=== PATIENT | female | born 1950 | race Caucasian/White ===

== ENCOUNTER 2022-10-09 15:32 | Emergency (ER) | payer MEDICARE, BC ==
[2022-10-09] MEDS ORDERED: Sodium Chloride 0.9% 10 ML Syringe FLUSH PRN (15:37)
[2022-10-09] MEDS ORDERED: Nitroglycerin 0.4 MG Tab.SL SL PRN (15:39)
[2022-10-09 16:24] LABS: ANION GAP 12.1 meq/L (7-15); CHLORIDE,CL 107 mmol/L (98-107); SODIUM,NA 143 mmol/L (136-145)
[2022-10-09 16:25] LABS: ESTIMATED GFR 85 mL/min (>=60)
[2022-10-09] MEDS: Aspirin 81 MG Tab.Chew PO ONE (16:30)
[2022-10-09 17:23] LABS: CORONAVIRUS COVID-19 NAA NEGATIVE (NEGATIVE); RESPIRATORY SYNCYTIAL VIR NAA NEGATIVE (NEGATIVE)
== END 2022-10-09 17:20 | disposition home or self-care (01) ==
LOC: LL.ED 15:32
DX: R07.89 Other chest pain (principal); E78.00 Pure hypercholesterolemia, unspecified; I10 Essential (primary) hypertension; Z86.16 Personal history of COVID-19; Z88.2 Allergy status to sulfonamides; Z88.8 Allergy status to other drugs, medicaments and biological substances; Z79.899 Other long term (current) drug therapy; Z79.82 Long term (current) use of aspirin; Z20.822 Contact with and (suspected) exposure to COVID-19
CPT/HCPCS: 0241U; 36415; 71045; 80053; 82550; 84484; 85025; 93005; 99285

== ENCOUNTER 2023-12-25 09:08 | Observation (INO) | payer MEDICARE, OTHER ==
[2023-12-25 09:57] LABS: BASOPHILS ABSOLUTE AUTO 0.03 K/uL (0.00-0.20); BASOPHILS PERCENT AUTO 0.4 % (0.0-2.0); EOSINOPHILS ABSOLUTE AUTO 0.17 K/uL (0.00-0.50); EOSINOPHILS PERCENT AUTO 2.4 % (0.0-5.0); HEMATOCRIT 39.7 % (34.0-46.0); HEMOGLOBIN 13.1 g/dL (11.7-15.5); LYMPHOCYTES ABSOLUTE AUTO 1.42 K/uL (0.50-3.50); LYMPHOCYTES PERCENT AUTO 20.1 % (10.0-50.0); MEAN CORPUSCULAR HEMOGLOBIN 30.5 pg (28.2-33.3); MEAN CORPUSCULAR VOLUME 92.3 fL (84.0-98.0); MONOCYTES PERCENT AUTO 8.5 % (2.0-14.0); NEUTROPHILS ABSOLUTE AUTO 4.85 K/uL (1.40-7.00); NEUTROPHILS PERCENT AUTO 68.6 % (45.0-80.0); PLATELET COUNT,PLT 319 K/uL (150-350); WHITE BLOOD CELL COUNT,WBC 7.1 K/uL (4.0-10.2)
[2023-12-25] MEDS: Meclizine 25 MG Tab PO ONE (10:08)
[2023-12-25] MEDS: cloNIDine 0.1 MG Tab PO ONE (10:08)
[2023-12-25 10:29] LABS: ALANINE AMINOTRANSFERASE,ALT 34 U/L (12-78); ALBUMIN 3.3 g/dL (3.4-5.0); ALKALINE PHOSPHATASE 118 IU/L (46-116); ASPARTATE AMNIOTRANSFERASE,AST 22 U/L (15-37); BILIRUBIN TOTAL 0.6 mg/dL (0.2-1.0); BLOOD UREA NITROGEN,BUN 16 mg/dL (7-18); CALCIUM 8.9 mg/dL (8.5-10.1); CARBON DIOXIDE,CO2 21.4 mmol/L (21.0-32.0); CHLORIDE,CL 110 mmol/L (98-107); CREATININE 0.82 mg/dL (0.51-1.17); GLUCOSE RANDOM 114 mg/dL (70-99); POTASSIUM,K 4.1 mmol/L (3.5-5.1); PRO B-TYPE NATRIUR PEPT,BNPPRO 231 pg/mL (0-125); PROTEIN TOTAL,TP 6.3 g/dL (6.4-8.2); SODIUM,NA 144 mmol/L (136-145)
[2023-12-25 10:30] LABS: ANION GAP 16.7 meq/L (7-15); ESTIMATED GFR 75 mL/min (>=60)
[2023-12-25] MEDS: Ondansetron 4 MG/2 ML SDV IVPUSH ONE (10:47)
[2023-12-25] MEDS: Sodium Chloride 0.9% 1,000 ML IV ONE (11:32)
[2023-12-25 12:17] LABS: CORONAVIRUS COVID-19 NAA NEGATIVE (NEGATIVE); INFLUENZA A NAA NEGATIVE (NEGATIVE); INFLUENZA B NAA NEGATIVE (NEGATIVE); RESPIRATORY SYNCYTIAL VIR NAA NEGATIVE (NEGATIVE)
[2023-12-25 12:55] LABS: APPEARANCE,URINE SLIGHTLY CLOUDY; BILIRUBIN,URINE NEGATIVE (NEGATIVE); COLOR,URINE YELLOW; GLUCOSE,URINE NEGATIVE (NEGATIVE); KETONES,URINE NEGATIVE (NEGATIVE); LEUKOCYTE ESTERASE,URINE TRACE (NEGATIVE); NITRITE,URINE NEGATIVE (NEGATIVE); OCCULT BLOOD,URINE NEGATIVE (NEGATIVE); PH,URINE 6.5 (5.0-9.0); PROTEIN,URINE NEGATIVE (NEGATIVE); UROBILINOGEN,URINE 0.2 E.U./dL (0.2-1.0)
[2023-12-25 13:01] LABS: BACTERIA,URINE RARE /HPF (NONE TO FEW); EPITHELIAL CELLS,URINE OCCASIONAL /LPF; RBC,URINE 0-5 /HPF; WBC,URINE 0-5 /HPF
[2023-12-25] MEDS ORDERED: Acetaminophen 325 MG Tab PO PRN (13:57)
[2023-12-25] MEDS: Meclizine 25 MG Tab PO SCH (16:58)
[2023-12-25] MEDS ORDERED: Ondansetron 4 MG/2 ML SDV IVPUSH PRN (17:00)
[2023-12-25] MEDS ORDERED: Latanoprost 0.005% Ophth Soln 2.5 ML Bottle EYEBOTH SCH (20:00)
[2023-12-25] MEDS: LATANOPROST 0.005% EYEBOTH SCH (20:27)
[2023-12-25] MEDS: Sodium Chloride 0.9% 10 ML Syringe FLUSH PRN (20:27)
[2023-12-25] MEDS: Aspirin 81 MG Tab.EC PO SCH (20:28)
[2023-12-25] MEDS: Losartan 50 MG Tab PO SCH (21:56)
[2023-12-26] MEDS: TIMOLOL EYEBOTH SCH (07:32)
[2023-12-26] MEDS: EYE EYEBOTH SCH (07:32)
[2023-12-26] MEDS: BRIMONIDINE EYEBOTH SCH (07:32)
[2023-12-26] MEDS: Cholestyramine/Sucrose Powder 4 GM Packet PO SCH (07:32)
[2023-12-26 07:34] LABS: BASOPHILS ABSOLUTE AUTO 0.03 K/uL (0.00-0.20); BASOPHILS PERCENT AUTO 0.5 % (0.0-2.0); EOSINOPHILS ABSOLUTE AUTO 0.17 K/uL (0.00-0.50); EOSINOPHILS PERCENT AUTO 2.8 % (0.0-5.0); HEMATOCRIT 39.5 % (34.0-46.0); HEMOGLOBIN 12.6 g/dL (11.7-15.5); LYMPHOCYTES ABSOLUTE AUTO 1.74 K/uL (0.50-3.50); LYMPHOCYTES PERCENT AUTO 28.2 % (10.0-50.0); MEAN CORPUSCULAR HEMOGLOBIN 30.2 pg (28.2-33.3); MEAN CORPUSCULAR HGB CONC 31.9 g/dL (31.7-36.0); MEAN CORPUSCULAR VOLUME 94.7 fL (84.0-98.0); MONOCYTES ABSOLUTE AUTO 0.69 K/uL (0.00-1.00); MONOCYTES PERCENT AUTO 11.2 % (2.0-14.0); NEUTROPHILS ABSOLUTE AUTO 3.55 K/uL (1.40-7.00); NEUTROPHILS PERCENT AUTO 57.3 % (45.0-80.0); PLATELET COUNT,PLT 296 K/uL (150-350); RED BLOOD CELL COUNT 4.17 M/uL (3.77-5.09); RED CELL DISTRIBUTION WIDTH 13.3 % (11.2-14.1); WHITE BLOOD CELL COUNT,WBC 6.2 K/uL (4.0-10.2)
[2023-12-26 07:46] LABS: CALCIUM 8.7 mg/dL (8.5-10.1); CARBON DIOXIDE,CO2 27.3 mmol/L (21.0-32.0); CREATININE 0.72 mg/dL (0.51-1.17); EST CRCL DRUG DOSING (CG) 58.3 mL/min; POTASSIUM,K 3.8 mmol/L (3.5-5.1)
[2023-12-26 07:59] LABS: ANION GAP 11.5 meq/L (7-15)
[2023-12-26] MEDS ORDERED: Brimonidine 0.2% Ophth Soln 5 ML Bottle EYEBOTH SCH (08:00)
[2023-12-26] MEDS ORDERED: Timolol Maleate 0.5% Ophth Soln 5 ML Bottle EYEBOTH SCH (08:00)
== END 2023-12-26 11:38 | disposition home or self-care (01) ==
LOC: LL.ED 09:08 → LL.MS 13:37
PROVIDERS: ADMIT Emergency Medicine; ATTEND Emergency Medicine
DX: R42 Dizziness and giddiness (principal); J01.10 Acute frontal sinusitis, unspecified; I10 Essential (primary) hypertension; E78.00 Pure hypercholesterolemia, unspecified; K21.9 Gastro-esophageal reflux disease without esophagitis; M81.0 Age-related osteoporosis without current pathological fracture; H40.9 Unspecified glaucoma; Z79.82 Long term (current) use of aspirin; Z79.899 Other long term (current) drug therapy
CPT/HCPCS: 0241U; 36415; 70450; 71045; 80048; 80053; 81001; 83605; 83735; 83880; 84443; 84484; 85025; 87086; 93005; 96361; 96374; 97161-GP; 99285-25; A9270-GY; J2405; J3490; J7030